=== PATIENT | female | born 1975 | race Caucasian/White ===

== ENCOUNTER 2021-10-12 16:56 | Emergency (ER) | payer OTHER ==
[~2021-10-12] VITALS: Ht 170.2 cm; Wt 62.6 kg
[2021-10-12] MEDS ORDERED: NALTREXONE HCL50 MG PO (18:20)
[2021-10-12] MEDS ORDERED: PRAZOSIN HCL1 MG PO (18:20)
[2021-10-12] MEDS ORDERED: SERTRALINE HCL100 MG PO (18:21)
[2021-10-12] MEDS ORDERED: HYDROXYZINE HCL25 MG PO (18:21)
== END 2021-10-12 23:15 | disposition home or self-care (01) ==
LOC: ED 16:56
DX: S06.9X1A Unspecified intracranial injury with loss of consciousness of 30 minutes or less, initial encounter (principal); S22.32XA Fracture of one rib, left side, initial encounter for closed fracture; S70.02XA Contusion of left hip, initial encounter; W01.10XA Fall on same level from slipping, tripping and stumbling with subsequent striking against unspecified object, initial encounter; Z79.899 Other long term (current) drug therapy; Z88.8 Allergy status to other drugs, medicaments and biological substances
CPT/HCPCS: 70450; 71100; 73502; 84703; 96372; 99284-25; J2060

== ENCOUNTER 2022-07-25 16:32 | Inpatient (IN) | payer OTHER ==
[~2022-07-25] VITALS: Ht 170.2 cm; Wt 53.0 kg
[~2022-07-25 16:32] MED LIST: HYDROXYZINE HCL25 MG PO; NALTREXONE HCL50 MG PO; PRAZOSIN HCL1 MG PO; SERTRALINE HCL100 MG PO; VARENICLINE TART1 MG PO
--- OUTSIDE RECORDS SUMMARY | 2022-07-25 16:40 | XMS ---
PreManage Notification: BRENT BILLINGS [employer] Events No recent Security Events currently on file CRITERIA MET - [facility] - 2 Visits in 30 Days CARE PROVIDERS [facility]Current PHONE: Unknown ALEXANDRA VAUGHN [facility] Current PHONE: Unknown Alysia has no Care Guidelines for this patient. Nikki VISIT COUNT (12 MO.) [address] [place] [address] TOTAL 4 NOTE: Visits indicate total known visits. ED/UCC VISIT TRACKING (12 MO.) 07/25/2022 16:33 [facility] TYPE: Emergency COMPLAINT: - WEAKNESS 07/20/2022 18:37 [facility] TYPE: Emergency COMPLAINT: - SHORTNESS OF BREATH 04/03/2022 13:27 [facility] TYPE: Emergency COMPLAINT: - WEAKNESS DIAGNOSES: - Hypo-osmolality and hyponatremia - Hypokalemia - Other longterm (current) drug therapy - Acute kidney failure, unspecified - Dehydration - Allergy status to other drugs, medicaments and biological substances - Alcohol abuse, uncomplicated - Weakness - Contact with and (suspected) exposure to COVID-19 10/12/2021 16:[address] [facility] [place] TYPE: Emergency COMPLAINT: - GLF DIAGNOSES: - Fracture of one rib, left side, initial encounter for closed fracture - Fall on same level from slipping, tripping and stumbling with subsequent striking against unspecified object, initial encounter - Other longterm (current) drug therapy - Unspecified intracranial injury with loss of consciousness of 30 minutes or less, initial encounter - Unspecified injury of head, initial encounter - Contusion of left hip, initial encounter - Allergy status to other drugs, medicaments and biological substances INPATIENT VISIT TRACKING (12 MO.) [facility] DIAGNOSES: - Unsteadiness on feet - CARLOS - Alcohol abuse, uncomplicated - Unspecified protein-calorie malnutrition - Anemia, unspecified [email or web address]
[2022-07-25] MEDS ORDERED: VENTOLIN HFA18 GM (17:30)
[2022-07-27] MEDS ORDERED: DAILY VALUE1 EACH PO (12:25)
[2022-07-27] MEDS ORDERED: CHLORHEXIDINE473 ML MM (12:26)
[2022-07-30] MEDS ORDERED: PANTOPRAZOLE SO40 MG PO (12:17)
[2022-07-30] MEDS ORDERED: SUCRALFATE1 GM PO (12:17)
[2022-07-30] MEDS ORDERED: POTASSIUM CHLO20 ME1 PO (12:18)
[2022-07-30] MEDS ORDERED: MAG6464 MG PO (12:21)
== END 2022-07-30 13:10 | disposition home or self-care (01) | DRG 682 ==
LOC: ED 16:32 → MS 19:54 → CCU 19:54 → MS 19:54
PROVIDERS: ADMIT Internal Medicine; ATTEND Family Medicine
DX: N17.9 Acute kidney failure, unspecified (principal); G93.41 Metabolic encephalopathy; E87.1 Hypo-osmolality and hyponatremia; E46 Unspecified protein-calorie malnutrition; F10.239 Alcohol dependence with withdrawal, unspecified; K29.20 Alcoholic gastritis without bleeding; F10.20 Alcohol dependence, uncomplicated; E87.6 Hypokalemia; D69.6 Thrombocytopenia, unspecified; E83.42 Hypomagnesemia; G62.1 Alcoholic polyneuropathy; F31.9 Bipolar disorder, unspecified; F43.10 Post-traumatic stress disorder, unspecified; Z88.8 Allergy status to other drugs, medicaments and biological substances; Z98.890 Other specified postprocedural states; F41.8 Other specified anxiety disorders; Z79.899 Other long term (current) drug therapy; I95.9 Hypotension, unspecified
CPT/HCPCS: 36415; 51702; 76705; 80048; 80053; 81001; 82140; 82570; 82607; 82746; 83690; 83735; 83930; 83935; 84300; 84425; 84443; 84550; 85025; 85060; 85610; 86704; 86803; 87040; 87502; 97116; 97163; 97167; 97530; 97535; 99285-25; 99406; A9270; C9113; C9803; G0480; J2060; J2597; J3411; J3475; J3480; J7030; J7060; J7070; J7131; U0003